=== PATIENT | female | born 1935 | race Caucasian/White ===

== ENCOUNTER 2021-09-13 20:46 | Emergency (ER) | payer MEDICARE, OTHER ==
[~2021-09-13] VITALS: Ht 157.5 cm; Wt 63.5 kg
[2021-09-13] MEDS ORDERED: TDAP DIPH,PERTUSS,TET VAC/PF 0.5 ML DISP.SYRIN IM ONE ×2 (21:45→22:13)
--- NOTE | 2021-09-13 22:30 | NUR ---
removed dressing from right arm. cleaned abrasions with normal saline.
[2021-09-13] MEDS ORDERED: LIDOCAINE HCL 2% 20 ML VIAL IJ ONE (23:15)
[2021-09-13] MEDS ORDERED: ACETAMINOPHEN 325 MG TABLET PO ONE (23:15)
[2021-09-13] MEDS ORDERED: ACETAMINOPHEN 325 MG TABLET ONE (23:26)
[2021-09-13] MEDS ORDERED: ACET-2154 PO (23:39)
[2021-09-13] MEDS ORDERED: CEPH500T PO (23:39)
--- NOTE | 2021-09-14 00:16 | NUR ---
Patient discharged to home in stable condition. Written and verbal after care instructions given. Patient verbalizes understanding of instructions. Stressed follow up or return to ER for worsening s/s. pt accompanied by son. taken to car via wheelchair. no sob. no chest pain.
[2021-09-14 00:47] VITALS: BP 140/72
== END 2021-09-14 00:48 | disposition home or self-care (01) ==
LOC: ER 20:51
DX: M25.531 Pain in right wrist (principal); S61.012A Laceration without foreign body of left thumb without damage to nail, initial encounter; S01.81XA Laceration without foreign body of other part of head, initial encounter; S80.812A Abrasion, left lower leg, initial encounter; W10.0XXA Fall (on)(from) escalator, initial encounter; Y92.89 Other specified places as the place of occurrence of the external cause; K21.9 Gastro-esophageal reflux disease without esophagitis; Z85.9 Personal history of malignant neoplasm, unspecified; Z79.82 Long term (current) use of aspirin
CPT/HCPCS: 70450; 71045; 72125; 72170; 73130; 90715; A4663

== ENCOUNTER 2021-09-16 16:30 | Emergency (ER) | payer MEDICARE, OTHER ==
[~2021-09-16] VITALS: Ht 157.5 cm; Wt 63.5 kg
[~2021-09-16 16:30] MED LIST: ACET-2154 PO; CEPH500T PO
[2021-09-16] MEDS ORDERED: ACETAMINOPHEN ES 500 MG TABLET PO ONE (17:15)
[2021-09-16] MEDS ORDERED: NEOMY/BACITRA/POLYMYXIN B OINT UD PACKET TP ONE ×3 (17:15→17:33)
[2021-09-16] MEDS ORDERED: ACETAMINOPHEN ES 500 MG TABLET ONE (17:23)
--- NOTE | 2021-09-16 17:30 | NUR ---
Patient discharged to home in stable condition. Written and verbal after care instructions given. Patient verbalizes understanding of instructions. Stressed follow up or return to ER for worsening s/s.PT ACCOMPANIED BY SON.
== END 2021-09-16 17:30 | disposition home or self-care (01) ==
LOC: ER 16:36
DX: S61.412D Laceration without foreign body of left hand, subsequent encounter (principal); S01.81XD Laceration without foreign body of other part of head, subsequent encounter; W10.0XXD Fall (on)(from) escalator, subsequent encounter; K21.9 Gastro-esophageal reflux disease without esophagitis
CPT/HCPCS: A4663; A9150